=== PATIENT | male | born 1955 | race Caucasian/White ===

== ENCOUNTER 2016-12-16 12:50 | Emergency (ER) | payer BC ==
[2016-12-16 12:57] VITALS: BP 145/72; PULSE 65; TEMP 98.2; BMI 31.9
--- NOTE | 2016-12-16 14:46 | PDOC ---
History of Present Illness - General Chief Complaint: Laceration Stated Complaint: LACERATION Time Seen by Provider: 12/16/16 14:32 History Source: Patient Exam Limitations: No Limitations - History of Present Illness Initial Comments: 12/16/16 14:57 My chief complaint: Drainage from wound on left chest wall History of present illness: Patient is a 61-year-old male with a history of mantle lymphoma and lef lung lobectomy that was performed on 12/07/2016 at [facility]'s here today due to patient noticing sanguinous drainage from wound site that was sutured. Patient thinks that he might have "popped" the suture last night when he was doing exercises eyeing on his back and bring his knees upward. Patient also reports that he carried a bag that was approximately 25 pounds in his left hand last night. Patient denies any shortness of breath has an occasional dry cough is not worse since last night and reports that his chest pain is much better than a few days ago after his surgery. Patient has been afebrile denies any chills. Patient reports that his surgeon was from [facility] that he has an appointment with him on 2016. Patient reports that he called this doctor however was unable to get through to him. Timing/Duration: getting worse (today ) Severity: moderate Associated Symptoms: reports: other (drainage serosanquinous from left lateral lower operative site from left lobectomy 12/07/16) Past History - Past Medical History Allergies/Adverse Reactions: Allergies Allergy/AdvReac Type Severity Reaction Status Date / Time No Known Allergies Allergy Verified 12/16/16 12:57 Home Medications: Ambulatory Orders Ibrutinib [Imbruvica] 140 mg PO ASDIR 12/16/16 Metoprolol Succinate/Hctz [Dutoprol 100-12.5 mg Tablet] 1 each PO DAILY Cancer: Yes (mantel lymphoma, left lung CA primary site) Lung CA: Yes (left lobectomy 12/07/16 primary site ) - Psycho/Social/Smoking Cessation Hx Suicidal Ideation: No Smoking History: Never smoked Information on smoking cessation initiated: No Hx Alcohol Use: No Drug/Substance Use Hx: No Substance Use Type: None Review of Systems - Review of Systems Able to Perform ROS?: Yes Constitutional: No: Symptoms Reported HEENTM: No: Symptoms Reported Respiratory: No: Symptoms reported Cardiac (ROS): No: Symptoms Reported ABD/GI: No: Symptoms Reported : No: Symptoms Reported Integumentary: Yes: Other (left lower lateral chest wall operative site with [address] serosanquinous discharge soaked through 4 x 4 from triage, pt. reports drainage started today ) *Physical Exam - Vital Signs Last Vital Signs Temp Pulse Resp BP Pulse Ox 98.2 F 65 18 145/72 97 12/16/16 12:55 12/16/16 12:55 12/16/16 12:55 12/16/16 12:55 12/16/16 12:55 - Physical Exam General Appearance: Yes: Appropriately Dressed Respiratory/Chest: positive: Chest Tender (slight around operative site left lower lateral chest wall ), Lungs Clear, Normal Breath Sounds. negative: Respiratory Distress Cardiovascular: positive: Regular Rhythm, Regular Rate, S1, S2 Integumentary: positive: Other (left lower lateral chest wall sutured area ( 2 sutures) approx 2.2 cm with slightly dihised medially with sm amt of serosanquionus drainage when pressure applied to side of wound, slightly tender , wound edges minimally erythematous, 2 areas of 2 cm steristripped, and one laterally left lateral torsl 2 cm with no discharge from these areas, non tender ) Neurologic: positive: Alert, Normal Response, Responsive ED Treatment Course - LABORATORY CBC & Chemistry Diagram: 12/16/16 15:01 Medical Decision Making - Medical Decision Making 12/16/16 15:00 Patient is a 61-year-old male with a history of mantle lymphoma and lef lung lobectomy that was performed on 12/07/2016 at [facility]'s here today due to patient noticing sanguinous drainage from wound site that was sutured. Patient thinks that he might have "popped" the suture last night when he was doing exercises eyeing on his back and bring his knees upward. Patient also reports that he carried a bag that was approximately 25 pounds in his left hand last night. Patient denies any shortness of breath has an occasional dry cough is not worse since last night and reports that his chest pain is much better than a few days ago after his surgery. Patient has been afebrile denies any chills. Patient reports that his surgeon was from [facility] that he has an appointment with him on 12/20/2016. Patient reports that he called this doctor however was unable to get through to him. wound Dihised left lower chest wall r/o pneumothorax r/o post op infection Plan: consult with Dr. Mccain [phone] he recommended getting a CBC with diff, chest PA/lateral, apply abdominal pad dressing and to inform pt to call if any increase in drainage from wound CBC with diff Xray chest PA/lateral adhered linear of the right lung base are consistent with atelectasis. mild increased density with linear component to the left perihilar region. Small left pleural effusions is also noted. Clinical correlation and follow up of these findings to resolutions. Per Dr. Mclaughlin will discharge to home pt. to apply abdominal pad dressing and to inform pt to call if any increase in drainage from wound CALL DR. MCCAIN 12/16/16 15:04 12/16/16 15:48 Laboratory Tests 12/16/16 15:01 WBC 6.5 RBC 3.90 L Hgb 13.1 Hct 38.2 MCV 98.0 H MCH 33.7 MCHC 34.3 RDW 13.9 Plt Count 136 MPV 8.1 Neutrophils % 71.0 Lymphocytes % 11.5 Monocytes % 11.6 H Eosinophils % 3.2 Basophils % 2.7 H 12/16/16 15:50 12/16/16 16:10 12/16/16 16:13 12/16/16 19:59 *DC/Admit/Observation/Transfer Diagnosis at time of Disposition: Wound dehiscence, surgical Qualifiers: Encounter type: initial encounter Qualified Code(s): T81.31XA - Disruption of external operation (surgical) wound, not elsewhere classified, initial encounter - Discharge Dispostion Disposition: HOME Condition at time of disposition: Stable - Patient Instructions Additional Instructions: FOLLOW UP WITH YOUR SURGEON ON 12/20/16 CALL YOUR SURGEON IF DISCHARGE FROM WOUND WORSENS OR ANY FEVER OR ANY SHORTNESS OF BREATH OR PAIN CHANGE DRESSING DAILY WASH AREA WITH ANTIBACTERIAL SOAP AND WATER PAT DRY APPLY TINY AMOUNT OF BACITRACIN OINTMENT, COVER WITH DRESSING YOU MAY SHOWER USUAL PATIENT VOICED UNDERSTANDING OF DISCHARGE INSTRUCTIONS AND ALL QUESTIONS WERE ANSWERED
[2016-12-16 15:09] LABS: BASOPHIL 2.7 % (0-2.0); EOSINOPHIL 3.2 % (0-4.5); MCH 33.7 pg (25.7-33.7); MCHC 34.3 g/dl (32.0-35.9); MEAN PLT VOLUME 8.1 fl (7.5-11.1); PLATELET COUNT 136 K/MM3 (134-434); RDW 13.9 % (11.9-15.9); WHITE BLOOD COUNT 6.5 K/mm3 (4.0-10.0)
== END 2016-12-16 16:21 | disposition home or self-care (01) ==
LOC: JERFT 12:50
DX: T81.31XA Disruption of external operation (surgical) wound, not elsewhere classified, initial encounter (principal)
CPT/HCPCS: 36415; 71020-TC; 85025; 99281-25